=== PATIENT | female | born 1980 | race Caucasian/White ===

== ENCOUNTER → 2016-07-24 | Outpatient (CLI) | payer OTHER ==
[~2016-07-24] MED LIST: GASTROGRAFIN SOLUTION 30ML (Q9963) As Ordered ONE; ISOVUE-370 76% 100ML VIAL (Q9967) As Ordered ONE
--- NOTE | 2016-07-24 14:04 | REP ---
CT abdomen with IV and oral contrast: History: Periumbilical swelling. Comparison chest CT study from March 08, 2015. CT contrast dose: 100 mL of Isovue 370 is administered. Findings: Digital filter screen cleaner radiograph demonstrates a large amount of formed stool throughout the colon consistent with obstipation/constipation pattern. There are clips in the right upper quadrant of the abdomen. The lung bases show some linear fibrotic or atelectatic density in the right middle lobe and a triangular noncalcified 6 mm nodular opacity in the left lower lobe. Both of these opacities are visible on the March 08, 2015 prior study and are felt to be benign. Lung bases are otherwise clear. The patient is status post bilateral breast augmentation. The liver and spleen are normal in size and homogeneous in texture. There are clips in the gallbladder fossa post cholecystectomy. No pancreatic abnormality is observed. Normal adrenal glands are seen bilaterally. The kidneys enhance symmetrically and are morphologically intact. The colon is mildly dilated with formed stool, notably in the periumbilical region where the transverse colon, filled with fecal content, measures 3.8 cm anterior to posterior. There is no evidence of small bowel dilation to suggest obstruction. No free air is seen. No mass or adenopathy is noted. Normal caliber aorta is seen. No bony destructive lesion. Impression: Constipation/obstipation bowel gas pattern. Formed stool in the transverse colon is just beneath the epigastrium and periumbilical region of the abdomen. No pathologic mass or adenopathy seen. The patient is post cholecystectomy. No other significant finding. Signed by Memo Aburto MD 07/24/2016 04:33 P
== END ==
LOC: M RAD 11:06
PROVIDERS: ATTEND Family Medicine
DX: K59.00 Constipation, unspecified (principal); Z85.72 Personal history of non-Hodgkin lymphomas
CPT/HCPCS: 74160; Q9963; Q9967